=== PATIENT | female | born 1940 | race Caucasian/White ===

== ENCOUNTER 2016-07-11 08:46 | Outpatient (CLI) | payer OTHER, MEDICARE ==
[2016-07-11] MEDS ORDERED: GADOPENTETATE DIMEGLUMINE 15 ML VIAL IV ONE (09:34)
== END 2016-07-11 20:59 | disposition home or self-care (01) ==
LOC: SMI 08:46
PROVIDERS: ATTEND Psychiatry & Neurology Neurology with Special Qualifications in Child Neurology
DX: R51 Headache (principal)
CPT/HCPCS: 70553; A9579